=== PATIENT | female | born 1950 | race Caucasian/White ===

== ENCOUNTER 2021-01-14 08:23 | Emergency (ER) | payer MEDICARE, OTHER ==
[~2021-01-14] VITALS: Ht 162.6 cm; Wt 100.0 kg
[~2021-01-14 08:23] MED LIST: AZIT250T PO
[2021-01-14] MEDS ORDERED: normal saline 1000ML IV soln IVB ONE (08:35)
[2021-01-14] MEDS ORDERED: ondansetron/PF 4mg/2ml inj IV ONE (08:35)
[2021-01-14] MEDS ORDERED: ketorolac trometh. 30mg/ml inj. IV ONE (08:35)
[2021-01-14] MEDS: morphine 4 MG/ML inj SYRINge IV PRN ×2 (09:07→09:54)
[2021-01-14 09:34] LABS: BASOPHILS % (AUTO) 0.5 % (0-1); EOSINOPHILS # (AUTO) 0.2 X10'3 (0-0.9); EOSINOPHILS % (AUTO) 2.9 % (0-6); HEMATOCRIT 43.3 % (35.0-45.0); HEMOGLOBIN 14.4 g/dl (12.0-16.0); LYMPHOCYTES # (AUTO) 2.1 X10'3 (1.1-4.8); LYMPHOCYTES % (AUTO) 24.6 % (21-51); MEAN CORPUSCULAR HEMOGLOBIN 28.1 PG (27.0-31.0); MEAN CORPUSCULAR HGB CONC 33.1 g/dL (33.0-36.5); MEAN PLATELET VOLUME 8.8 FL (7.4-10.4); MONOCYTES # (AUTO) 0.7 X10'3 (0-0.9); MONOCYTES % (AUTO) 8.1 % (2-12); NEUTROPHILS # (AUTO) 5.4 X10'3 (1.8-7.7); NEUTROPHILS % (AUTO) 63.9 % (42-75); PLATELET COUNT 364 X10'3 (140-440); RED CELL DISTRIBUTION WIDTH 14.1 % (11.5-14.5); WHITE BLOOD COUNT 8.4 X10'3 (4.5-11.0)
[2021-01-14 09:40] LABS: ALANINE AMINOTRANSFERASE 24 U/L (12-78); ALBUMIN 3.5 G/DL (3.4-5.0); ALBUMIN/GLOBULIN RATIO 0.8 (1.1-1.5); ALKALINE PHOSPHATASE 104 IU/L (46-116); ANION GAP 11 (8-16); ASPARTATE AMINO TRANSFERASE 17 U/L (10-37); BILIRUBIN,TOTAL 0.3 MG/DL (0.1-1.0); BLOOD UREA NITROGEN 14 MG/DL (7-18); BUN/CREATININE RATIO 19.7 (6.6-38.0); CALCIUM 8.9 MG/DL (8.5-10.1); CHLORIDE 105 MMOL/L (99-107); CREATININE 0.71 MG/DL (0.40-0.90); GLUCOSE 112 MG/DL (70-104); POTASSIUM 3.8 MMOL/L (3.5-5.1); SODIUM 142 MMOL/L (135-145); TOTAL CARBON DIOXIDE 26.2 MMOL/L (24-32); TOTAL PROTEIN 7.9 G/DL (6.4-8.2); eGFR 81 ML/MIN
[2021-01-14 10:21] LABS: CLARITY,URINE CLOUDY (Clear); COLOR,URINE YELLOW (Yellow); GLUCOSE, URINE NEGATIVE (Neg); KETONES,URINE NEGATIVE (Neg); LEUKOCYTE ESTERASE ,URINE NEGATIVE (Neg); NITRITES, URINE NEGATIVE (Neg); OCCULT BLOOD,URINE LARGE (Neg); PH,URINE 6.5 (4.8-8.0); PROTEIN,URINE 30 mg/dl (Neg); UROBILINOGEN,URINE 0.2 E.U/dL (0.2-1.0)
[2021-01-14] MEDS ORDERED: ONDA4TAB6 PO (10:21)
[2021-01-14] MEDS ORDERED: FLO0.4C PO (10:21)
[2021-01-14] MEDS ORDERED: HYDR-3965 PO (10:21)
[2021-01-14] MEDS ORDERED: NAPR-56 PO (10:21)
[2021-01-14 10:32] LABS: UA COLLECTION TYPE CLN CATCH MIDSTREAM
[2021-01-14 10:42] LABS: MUCUS STRANDS NONE SEEN /LPF (Neg); SQUAMOUS EPITHELIAL CELL,UR MANY /LPF (FEW)
[2021-01-14 10:43] LABS: RBC,URINE TNTC /HPF (0-2)
[2021-01-14 10:47] LABS: BACTERIA,URINE FEW /HPF (Neg); STARCH,URINE FEW /HPF (NEGATIVE)
[2021-01-14 10:48] LABS: WBC,URINE 0-4 /HPF (0-4)
[2021-01-14 11:01] VITALS: BP 136/55
== END 2021-01-14 11:03 | disposition home or self-care (01) ==
LOC: ER 08:24
DX: N20.0 Calculus of kidney (principal); R10.30 Lower abdominal pain, unspecified; Z87.442 Personal history of urinary calculi; Z90.710 Acquired absence of both cervix and uterus; Z79.2 Long term (current) use of antibiotics; Z79.899 Other long term (current) drug therapy
CPT/HCPCS: 36415; 74176; 80053; 81001; 85025; 93005; 96361; 96374; 96375; 96376; 99285; J1885; J2270; J2405; J7030

== ENCOUNTER 2021-02-10 06:55 | Observation (INO) | payer MEDICARE, OTHER ==
[2021-02-10] VITALS (9 sets, daily range): BP systolic 104–137; BP diastolic 40–63
[~2021-02-10] VITALS: Ht 162.6 cm; Wt 95.7 kg
[~2021-02-10 06:55] MED LIST changes: +FLO0.4C PO; +HYDR-3965 PO; +NAPR-56 PO; +ONDA4TAB6 PO
[2021-02-10] MEDS ORDERED: nitroGLYCERIN 0.4mg/hour patch TD ONE (07:20)
[2021-02-10] MEDS ORDERED: aspirin 81mg tab.chew PO ONE (07:20)
[2021-02-10 08:17] LABS: BASOPHILS % (AUTO) 0.5 % (0-1); EOSINOPHILS # (AUTO) 0.2 X10'3 (0-0.9); EOSINOPHILS % (AUTO) 3.3 % (0-6); LYMPHOCYTES # (AUTO) 1.8 X10'3 (1.1-4.8); MEAN CORPUSCULAR HEMOGLOBIN 28.2 PG (27.0-31.0); MEAN CORPUSCULAR HGB CONC 32.5 g/dL (33.0-36.5); MEAN CORPUSCULAR VOLUME 86.7 FL (78-98); MEAN PLATELET VOLUME 8.9 FL (7.4-10.4); MONOCYTES # (AUTO) 0.7 X10'3 (0-0.9); MONOCYTES % (AUTO) 10.4 % (2-12); NEUTROPHILS # (AUTO) 4.3 X10'3 (1.8-7.7); NEUTROPHILS % (AUTO) 60.8 % (42-75); PLATELET COUNT 318 X10'3 (140-440); RED BLOOD COUNT 4.96 X10'6 (4.20-5.60); WHITE BLOOD COUNT 7.1 X10'3 (4.5-11.0)
[2021-02-10 08:21] LABS: ALANINE AMINOTRANSFERASE 21 U/L (12-78); ALBUMIN 3.5 G/DL (3.4-5.0); ALBUMIN/GLOBULIN RATIO 0.8 (1.1-1.5); ALKALINE PHOSPHATASE 97 IU/L (46-116); ANION GAP 7 (8-16); ASPARTATE AMINO TRANSFERASE 13 U/L (10-37); BILIRUBIN,TOTAL 0.4 MG/DL (0.1-1.0); BLOOD UREA NITROGEN 12 MG/DL (7-18); BUN/CREATININE RATIO 18.8 (6.6-38.0); CHLORIDE 106 MMOL/L (99-107); CREATININE 0.64 MG/DL (0.40-0.90); GLUCOSE 105 MG/DL (70-104); SODIUM 141 MMOL/L (135-145); TOTAL CARBON DIOXIDE 28.1 MMOL/L (24-32); TOTAL PROTEIN 7.8 G/DL (6.4-8.2); eGFR > 90 ML/MIN
[2021-02-10] MEDS ORDERED: metoprolol tartrate 1mg/ml inj IV PRN (09:00)
[2021-02-10] MEDS ORDERED: nitroGLYCERIN 0.4mg SUBLingual tab SL PRN ×2 (09:00)
[2021-02-10] MEDS ORDERED: HYDROcodone/acetaminophen 5mg/325mg tablet PO PRN (09:00)
[2021-02-10] MEDS ORDERED: magnesium Cl slow-release 64mg tablet PO PRN (09:00)
[2021-02-10] MEDS ORDERED: HYDROcodone/acetaminophen 10/325mg tab PO PRN (09:00)
[2021-02-10] MEDS ORDERED: morphine 2 MG/ML inj. syringe IV PRN ×2 (09:00)
[2021-02-10] MEDS ORDERED: mag hydrox/Alum hydrox/simeth 30ml oral suspension PO PRN (09:00)
[2021-02-10] MEDS ORDERED: acetaminophen 325mg tablet PO PRN ×2 (09:00)
[2021-02-10] MEDS ORDERED: ondansetron/PF 4mg/2ml inj IV PRN (09:00)
[2021-02-10] MEDS ORDERED: aminophylline 250mg/10ml inj. IV PRN (09:00)
[2021-02-10] MEDS ORDERED: normal saline 1000ml 1,000 ML IV SCH (09:00)
[2021-02-10] MEDS ORDERED: regadenoson 0.4mg/5ml syringe IV PRN (09:00)
[2021-02-10] MEDS ORDERED: magnesium 4gm in 100ml NS 100 ML IV PRN (09:00)
[2021-02-10] MEDS ORDERED: potassium Cl 40MEQ/1/2NS 520ml 520 ML IV PRN ×2 (09:00)
[2021-02-10] MEDS ORDERED: magnesium 2GM in 50ml NS 50 ML IV PRN (09:00)
[2021-02-10] MEDS ORDERED: potassium Cl 20 mEq SR tablet PO PRN ×2 (09:00)
[2021-02-10] MEDS ORDERED: magnesium hydroxide 30ml (MOM) UD suspension PO PRN (09:00)
[2021-02-10 09:36] LABS: CHOL/HDL RATIO 2.6 (0.00-4.99); CHOLESTEROL 133 MG/DL (0-200); HDL CHOLESTEROL 52 MG/DL (35-60); LDL CHOLESTEROL 71 MG/DL (50-100); TRIGLYCERIDES 107 MG/DL (20-135)
[2021-02-10] MEDS ORDERED: CHOL20004 PO (09:52)
[2021-02-10] MEDS ORDERED: OMEG1CAP13 PO (09:52)
[2021-02-10] MEDS ORDERED: [UNRECOGNIZED DRUG - CODE] PO (09:52)
[2021-02-10] MEDS ORDERED: K and/or MAG REPLACEMENT MC SCH (20:00)
[2021-02-10] MEDS ORDERED: temazepam 15mg capsule PO PRN (21:00)
[2021-02-11] MEDS ORDERED: enoxaparin 40mg/0.4ml syringe SUBCUT SCH (08:00)
[2021-02-11] MEDS ORDERED: aspirin 81mg tablet.DR PO SCH (08:00)
--- NOTE | 2021-02-11 10:21 | NUR ---
CASE MANAGEMENT DISCHARGE FOLLOW UP: Spoke with pt via telephone. Reports that she is doing great; denies CP, SOB/dyspnea, dizziness, diaphoresis, N/V. Verbalizes understanding of s/sx requiring further evaluation/emergent assistance. Verbalizes understanding of medications. Verbalizes understanding and compliance with MD discharge instructions. Verbalizes understanding of the importance in making/keeping follow-up appointments, states that she has not yet set up an appointment with her PCP but that she will do so, denies need for assistance. States that staff were very attentive to her needs. States no further questions/concerns at this time.
== END 2021-02-10 14:29 | disposition home or self-care (01) ==
LOC: ER 06:55 → ED HOLD 08:59 → PCU 3S 11:58
PROVIDERS: ADMIT Family Medicine; ATTEND Family Medicine
DX: R07.89 Other chest pain (principal); I20.0 Unstable angina; K21.9 Gastro-esophageal reflux disease without esophagitis; I11.9 Hypertensive heart disease without heart failure; Z87.442 Personal history of urinary calculi; Z90.710 Acquired absence of both cervix and uterus
CPT/HCPCS: 36415; 71045; 78452; 80053; 80061; 83880; 84443; 84484; 85025; 87081; 93017; 96360; 96361; 99284; A9500; G0378; J2785; J7030

== ENCOUNTER 2021-10-30 06:50 | Emergency (ER) | payer MEDICARE, OTHER ==
[~2021-10-30] VITALS: Ht 162.6 cm; Wt 96.0 kg
[~2021-10-30 06:50] MED LIST changes: -AZIT250T PO; +CHOL20004 PO; -FLO0.4C PO; -HYDR-3965 PO; -NAPR-56 PO; +OMEG1CAP13 PO; -ONDA4TAB6 PO; +[UNRECOGNIZED DRUG - CODE] PO
[2021-10-30 07:10] VITALS: BP 135/82
[2021-10-30] MEDS ORDERED: BENZ-38 PO (07:15)
[2021-10-30] MEDS ORDERED: AZIT-83 PO (07:15)
== END 2021-10-30 08:24 | disposition home or self-care (01) ==
LOC: ER 06:51
DX: J06.9 Acute upper respiratory infection, unspecified (principal); R09.81 Nasal congestion; R53.83 Other fatigue; R05.9 Cough, unspecified; Z87.442 Personal history of urinary calculi; Z90.710 Acquired absence of both cervix and uterus; Z79.2 Long term (current) use of antibiotics; Z79.899 Other long term (current) drug therapy
CPT/HCPCS: 71045; 99283

== ENCOUNTER 2022-01-07 08:49 | Emergency (ER) | payer MEDICARE, OTHER ==
[~2022-01-07] VITALS: Ht 162.6 cm; Wt 93.0 kg
[2022-01-07 08:55] VITALS: BP 135/73
--- NOTE | 2022-01-07 10:55 | NUR ---
Pt given and understands d/c instructions. Ambulatory with a steady gait.
== END 2022-01-07 10:55 | disposition home or self-care (01) ==
LOC: ER 08:50
DX: J20.9 Acute bronchitis, unspecified (principal); Z20.822 Contact with and (suspected) exposure to COVID-19; R05.9 Cough, unspecified; Z87.442 Personal history of urinary calculi; Z90.710 Acquired absence of both cervix and uterus; Z79.899 Other long term (current) drug therapy
CPT/HCPCS: 71045; 87635; 99284; C9803

== ENCOUNTER 2023-04-18 05:06 | Observation (INO) | payer MEDICARE, OTHER ==
[~2023-04-18] VITALS: Ht 175.3 cm; Wt 93.1 kg
[~2023-04-18 05:06] MED LIST changes: +OMEG-5 PO; -OMEG1CAP13 PO
[2023-04-18 05:45] LABS: ALANINE AMINOTRANSFERASE 21 U/L (12-78); ALBUMIN 3.3 G/DL (3.4-5.0); ALBUMIN/GLOBULIN RATIO 0.9 (1.1-1.5); ALKALINE PHOSPHATASE 84 IU/L (46-116); ANION GAP 7 (8-16); ASPARTATE AMINO TRANSFERASE 18 U/L (10-37); BASOPHILS # (AUTO) 0.1 X10'3 (0-0.2); BASOPHILS % (AUTO) 0.8 % (0-1); BILIRUBIN,TOTAL 0.4 MG/DL (0.1-1.0); BLOOD UREA NITROGEN 16 MG/DL (7-18); BUN/CREATININE RATIO 21.1 (10.0-20.0); CALCIUM 8.1 MG/DL (8.5-10.1); CHLORIDE 106 MMOL/L (99-107); CREATININE 0.76 MG/DL (0.40-0.90); EOSINOPHILS # (AUTO) 0.2 X10'3 (0-0.9); EOSINOPHILS % (AUTO) 2.9 % (0-6); GLUCOSE 108 MG/DL (70-104); HEMATOCRIT 43.1 % (35.0-45.0); HEMOGLOBIN 14.2 g/dl (12.0-16.0); LYMPHOCYTES # (AUTO) 2.9 X10'3 (1.1-4.8); LYMPHOCYTES % (AUTO) 35.1 % (21-51); MEAN CORPUSCULAR HEMOGLOBIN 28.5 PG (27.0-31.0); MEAN CORPUSCULAR VOLUME 86.3 FL (78-98); MEAN PLATELET VOLUME 8.5 FL (7.4-10.4); MONOCYTES # (AUTO) 0.8 X10'3 (0-0.9); MONOCYTES % (AUTO) 10.1 % (2-12); NEUTROPHILS # (AUTO) 4.2 X10'3 (1.8-7.7); NEUTROPHILS % (AUTO) 51.1 % (42-75); PLATELET COUNT 336 X10'3 (140-440); POTASSIUM 3.7 MMOL/L (3.5-5.1); RED CELL DISTRIBUTION WIDTH 14.1 % (11.5-14.5); SODIUM 140 MMOL/L (135-145); TOTAL CARBON DIOXIDE 26.6 MMOL/L (24-32); TOTAL PROTEIN 6.8 G/DL (6.4-8.2); WHITE BLOOD COUNT 8.2 X10'3 (4.5-11.0); eGFR 74 ML/MIN
--- NOTE | 2023-04-18 06:38 | NUR ---
PT ALSO REPORTS KIDNEY PAIN RIGHT SIDE, HX OF KIDNEY STONES.
[2023-04-18 08:42] LABS: CLARITY,URINE CLEAR (Clear); COLOR,URINE YELLOW (Yellow); GLUCOSE, URINE NEGATIVE (Neg); KETONES,URINE TRACE mg/dl (Neg); LEUKOCYTE ESTERASE ,URINE NEGATIVE (Neg); NITRITES, URINE NEGATIVE (Neg); OCCULT BLOOD,URINE MODERATE (Neg); PROTEIN,URINE TRACE mg/dl (Neg); UROBILINOGEN,URINE 0.2 E.U/dL (0.2-1.0)
[2023-04-18 08:48] LABS: UA COLLECTION TYPE CLN CATCH MIDSTREAM
[2023-04-18 08:49] LABS: RBC,URINE 20-50 /HPF (0-2)
[2023-04-18 08:50] LABS: BACTERIA,URINE FEW /HPF (Neg); MUCUS STRANDS NONE SEEN /LPF (Neg); SQUAMOUS EPITHELIAL CELL,UR FEW /LPF (FEW); WBC,URINE 0-4 /HPF (0-4)
--- NOTE | 2023-04-18 10:30 | NUR ---
UPDATED FAMILY ON PLAN FOR PENDING HOSPITALIST FOR POSSIBLE ADMISSION, REQUESTING NON NARCOTIC PAIN MEDICATION PRIOR TO DISCHARGE
[2023-04-18] MEDS ORDERED: aspirin 325mg tablet PO ONE (11:00)
[2023-04-18] MEDS ORDERED: nitroGLYCERIN 1gm ointment UD TP ONE (11:00)
[2023-04-18] MEDS ORDERED: magnesium 2GM in 50ml NS 50 ML IV PRN (11:55)
[2023-04-18] MEDS ORDERED: PERFLUTREN PROTEIN-A MICROSPHR (Optison) 0.22 MG/ML 3ML VIAL IV ONE (11:55)
[2023-04-18] MEDS ORDERED: morphine 2 MG/ML inj. syringe IV PRN ×2 (11:55)
[2023-04-18] MEDS ORDERED: potassium Cl 40MEQ/1/2NS 520ml 520 ML IV PRN (11:55)
[2023-04-18] MEDS ORDERED: magnesium Cl slow-release 64mg tablet PO PRN (11:55)
[2023-04-18] MEDS ORDERED: magnesium hydroxide 30ml (MOM) UD suspension PO PRN (11:55)
[2023-04-18] MEDS ORDERED: ondansetron/PF 4mg/2ml inj IV PRN (11:55)
[2023-04-18] MEDS ORDERED: acetaminophen 325mg tablet PO PRN (11:55)
[2023-04-18] MEDS ORDERED: mag hydrox/Alum hydrox/simeth 30ml oral suspension PO PRN (11:55)
[2023-04-18] MEDS ORDERED: potassium Cl 20 mEq SR tablet PO PRN ×2 (11:55)
[2023-04-18] MEDS ORDERED: magnesium 4gm in 100ml NS 100 ML IV PRN (11:55)
--- NOTE | 2023-04-18 12:50 | NUR ---
ATTEMPTED REPORT, NO ANSWER
[2023-04-18] MEDS ORDERED: NO HOME MEDS (13:25)
--- NOTE | 2023-04-18 13:41 | NUR ---
Patient refused PIV prior to transport to floor
--- NOTE | 2023-04-18 13:45 | NUR ---
RECEIVED REPORT AND ASSUMED CARE OF PATIENT. VSS A/OX4 NO CHEST PAIN STATED. WILL LOOK AT POC AND H&P AND DISCUSS POC WITH PATIENT
[2023-04-18 15:00] VITALS: BP 140/70
--- NOTE | 2023-04-18 15:25 | NUR ---
PAGER ID: [phone] MESSAGE: ROOM [id number] TRAMAINE - NO DIET ORDERED, CAN SHE EAT? ARE YOU DOING A FOLLOW UP ULTRASOUND FOR GALL STONES? PLEASE ADVISE - INDIRA CLAROS [phone]
[2023-04-18] MEDS: normal saline 1000ml 1,000 ML IV SCH ×2 (16:30→19:50)
[2023-04-18 18:00] VITALS: BP 138/57
--- NOTE | 2023-04-18 18:33 | NUR ---
Patient in room PCU 3028. I have received report from Teresa CLAROS, and had the opportunity to ask questions and assume patient care.
[2023-04-18] MEDS: K and/or MAG REPLACEMENT MC SCH (20:00)
[2023-04-18] MEDS: docusate sod 100mg capsule PO SCH (20:00)
[2023-04-18 22:00] VITALS: BP 132/90
[2023-04-18] MEDS: traMADol 50MG tablet PO PRN (22:14)
[2023-04-19] MEDS: normal saline 1000ml 1,000 ML IV SCH (02:00)
[2023-04-19 02:29] VITALS: BP 136/78
[2023-04-19 06:30] VITALS: BP 134/54
--- NOTE | 2023-04-19 06:30 | NUR ---
Problems reprioritized. Patient report given, questions answered & plan of care reviewed with Teresa RN. Pt stable at shift change.
[2023-04-19 06:49] LABS: ALBUMIN 2.8 G/DL (3.4-5.0); ANION GAP 5 (8-16); BLOOD UREA NITROGEN 10 MG/DL (7-18); BUN/CREATININE RATIO 15.6 (10.0-20.0); CALCIUM 8.3 MG/DL (8.5-10.1); CHLORIDE 107 MMOL/L (99-107); CREATININE 0.64 MG/DL (0.40-0.90); GLUCOSE 94 MG/DL (70-104); SODIUM 139 MMOL/L (135-145); TOTAL CARBON DIOXIDE 27.1 MMOL/L (24-32); eGFR > 90 ML/MIN
[2023-04-19 06:51] LABS: BASOPHILS % (AUTO) 0.5 % (0-1); EOSINOPHILS # (AUTO) 0.3 X10'3 (0-0.9); EOSINOPHILS % (AUTO) 3.9 % (0-6); HEMATOCRIT 40.8 % (35.0-45.0); HEMOGLOBIN 13.5 g/dl (12.0-16.0); LYMPHOCYTES # (AUTO) 2.1 X10'3 (1.1-4.8); LYMPHOCYTES % (AUTO) 32.4 % (21-51); MEAN CORPUSCULAR HEMOGLOBIN 28.8 PG (27.0-31.0); MEAN CORPUSCULAR VOLUME 87.4 FL (78-98); MEAN PLATELET VOLUME 8.3 FL (7.4-10.4); MONOCYTES # (AUTO) 0.6 X10'3 (0-0.9); MONOCYTES % (AUTO) 8.6 % (2-12); NEUTROPHILS # (AUTO) 3.5 X10'3 (1.8-7.7); NEUTROPHILS % (AUTO) 54.6 % (42-75); PLATELET COUNT 299 X10'3 (140-440); RED BLOOD COUNT 4.67 X10'6 (4.20-5.60); RED CELL DISTRIBUTION WIDTH 13.9 % (11.5-14.5); WHITE BLOOD COUNT 6.5 X10'3 (4.5-11.0)
[2023-04-19] MEDS ORDERED: pantoprazole 40mg Tablet.DR PO SCH (07:30)
[2023-04-19] MEDS: traMADol 50MG tablet PO PRN (07:47)
[2023-04-19] MEDS: K and/or MAG REPLACEMENT MC SCH (08:00)
[2023-04-19] MEDS: docusate sod 100mg capsule PO SCH (08:00)
[2023-04-19] MEDS ORDERED: enoxaparin 40mg/0.4ml syringe SUBCUT SCH (08:00)
--- NOTE | 2023-04-19 09:03 | NUR ---
SPOKE WITH [facility] WHO STATED THAT THE PATIENT STATED HER ULTRASOUND OF GALLBLADDER HAS BEEN CANCELLED BY MD. A DIET WAS ORDERED BY MD HOWEVER, ULTRASOUND WAS NOT CANCELLED. WILL ASK MD TO CONFIRM ULTRASOUND STATUS
[2023-04-19] MEDS ORDERED: TRAM50TA2 PO (09:31)
[2023-04-19] MEDS ORDERED: LANS30CA56 PO (09:31)
[2023-04-19 11:30] VITALS: BP 130/46
--- NOTE | 2023-04-19 15:05 | NUR ---
pt dc'd home. all dc instructions explained to pt and pts with both verbalizing understanding regarding poc. pt is to follow up with her urologist at [place]. new medications prescribed for gastritis/gerd per dr cabrera. if pt has recurring chest pain symptoms she is to return to the ED. it was decided that patient did not need a gall bladder us at this time. she will follow up with her pmd for all other concerns. pt left via vss a/ox4 all belongings including cell phone and truck driver supervisor left with patient
[2023-04-20] MEDS ORDERED: TRAM50TA2 PO (13:58)
== END 2023-04-19 15:13 | disposition home or self-care (01) ==
LOC: ER 05:06 → ED HOLD 11:54 → PCU 3S 13:48
PROVIDERS: ADMIT Family Medicine; ATTEND Family Medicine
DX: R07.89 Other chest pain (principal); R10.13 Epigastric pain; G89.29 Other chronic pain; M54.9 Dorsalgia, unspecified; N13.2 Hydronephrosis with renal and ureteral calculous obstruction; K57.30 Diverticulosis of large intestine without perforation or abscess without bleeding; Z87.442 Personal history of urinary calculi; Z90.710 Acquired absence of both cervix and uterus; Z79.899 Other long term (current) drug therapy
CPT/HCPCS: 36415; 71045; 74176; 80048; 80053; 81001; 83735; 83880; 84484; 85025; 87081; 93308; 96360; 96361; 96372; 99285; G0378; J1650; J7030

== ENCOUNTER 2025-05-13 13:53 | Emergency (ER) | payer MEDICARE, OTHER ==
[~2025-05-13] VITALS: Ht 162.6 cm; Wt 93.6 kg
[~2025-05-13 13:53] MED LIST changes: -CHOL20004 PO; +LANS30CA56 PO; -OMEG-5 PO; -[UNRECOGNIZED DRUG - CODE] PO
[2025-05-13 13:55] VITALS: TEMP 97.3
[2025-05-13] MEDS ORDERED: ketorolac trometh 15mg/ml vial 15 MG/ML ML IM ONE (14:15)
[2025-05-13] MEDS ORDERED: ondansetron 4mg rapidly disintigrating tab PO ONE (14:15)
--- NOTE | 2025-05-13 14:15 | Physician Documentation ---
History of Present Illness Chief Complaint: Flank Pain Stated Complaint: KIDNEY STONES Time Seen by MD: 14:02 Primary Medical Doctor: Bean (but no [facility] care) HPI This 74-year-old female with past history of kidney stones presents with approximately 1 hour of non-radiating right-sided flank pain with associated nausea though without vomiting or diarrhea. Patient reports no fever, dysuria, or hematuria. Patient reports no other acute symptoms or concerns. She reports that she has required lithotripsy 3 times prior. Medication Reconciliation Allergies: Coded Allergies: No Known Allergies (Unverified , 11/12/15) Scheduled Lansoprazole (Lansoprazole), 1 CAP PO DAILY Scheduled PRN Hydrocodone Bit/Acetaminophen 5/325 MG ([place] 5/325 MG), 1 TAB PO Q6H PRN for pain Past Medical History Past Medical History: Kidney Stones, Chronic Back Pain Past Surgical History: hysterectomy Other Past Surgical History: foot surgery for neuroma Patient History: FH: breast cancer FAMILY/OTHER (Aunt on mothers side), FH: prostate cancer FATHER Other Past Family History: No family history of CAD Alcohol Use: None Drug Use: none Lives with: Family Lives In: Home Occupation: retired Review of Systems ROS Right sided flank pain as stated above in the HPI, otherwise all systems are reviewed and negative. Physical Exam Vital Signs: Temperature: 97.3, Source: Temporal, Heart Rate: 71, Respiratory Rate: 16, BP: 213/83, Pulse Oximetry: 96, Weight: 93.600 Physical Exam VITALS: Reviewed and as above. GENERAL: Alert, nontoxic appearing, no apparent distress. RESPIRATORY: No increased work of breathing, no respiratory distress, speaking in full clear sentences, clear lung sounds in all haile CV: Regular rate and rhythm no murmur BACK: No tenderness to palpation, no CVA tenderness Progress Results/Orders Results/Orders Vital Signs 05/13/25 13:55 Temp 97.3 Pulse 71 Resp 16 B/P (MAP) 213/83 Pulse Ox 96 EKG/XRAY/CT/US/VASC/MRI CT : Impression EXAM: CT CT ABDOMEN PELVIS HISTORY: Right Flank Pain COMPARISON: None TECHNIQUE: Helical CT images of the abdomen and pelvis were performed without contrast. Sagittal and coronal reformatted images were obtained. This CT exam was performed using one or more of the following dose reduction techniques: Automated exposure control, adjustment of the mA and/or kV according to patient size, or use of iterative reconstruction technique. Radiation Dose: CT Abdomen/Pelvis: CTDIvol 18.13 mGy, DLP 860.78 mGy*cm. FINDINGS: Urinary tract: There is mild right hydronephrosis and hydroureter secondary to a 3 mm right distal ureteral calculus (image 62, series 2). There are nonobstructing bilateral renal subcentimeter calculi. No left ureteral calculi, hydronephrosis, or hydroureter. No urinary bladder calculi. Miscellaneous: The heart is upper limits of normal in size. The lung bases are clear. Small gallstones accumulate in the dependent portion of the gallbladder. The noncontrast liver, spleen, pancreas, and adrenal glands are unremarkable. There is a left upper quadrant splenule. No abdominal aortic aneurysm. No abnormal bowel dilatation, free air, free fluid, or suspicious adenopathy. The appendix is not dilated and does not appear inflamed. The uterus is surgically absent. There is large volume subcutaneous adipose tissue throughout. There is mild osteoarthritis of the hips. There is advanced lumbar degenerative disc disease and facet arthropathy. IMPRESSION: 1. Mild right hydronephrosis and hydroureter secondary to a distal ureteral 3 mm calculus. 2. Bilateral nonobstructing nephrolithiasis. 3. Cholelithiasis. 4. Postoperative changes of hysterectomy. 5. Advanced lumbar degenerative disc disease and facet arthropathy. Electronically Signed by:CALI RODRIGUEZ MD Date & Time: 05/13/251511 Dictated by: CALI RODRIGUEZ MD Dictation date and time: 05/13/251511 I have reviewed and agree with the radiology report. I have reviewed and interpreted the imaging as: Likely stone to distal ureter. No intraperitoneal free air Medical Decision Making Findings This 74-year-old female with a history of nephrolithiasis presented with acute onset right-sided flank pain, patient responded well to Toradol with report of significant reduction in pain, CT demonstrated 3 mm nonobstructing stone to distal right ureter. Patient's physical exam was benign, vital signs stable, lab work did not demonstrate evidence of systemic infection, urinary tract infection, or electrolyte or metabolic derangement. Increased WBCs on urinalysis attributed to hematuria related to passage of urolithiasis. Stone is 3 mm and will likely pass on its own, reassuring patient is able to follow up with her urologist. Hypertension on triage attributed to pain, with blood pressure decreasing after patient was medicated for pain. Pain is currently well controlled with nonnarcotic pain medications though patient discharged with short prescription for [place] for breakthrough flank pain. Patient is otherwise well-appearing and appropriate for outpatient follow up. I have discussed with the patient the risks of addiction and overdose associated with use of opioids, including the increased risk of addiction to an opioid for an individual who is suffering from both mental and substance abuse disorders. I have discussed with the patient the danger of taking an opioid with a benzodiazepine, alcohol, or another central nervous system depressant. [facility] database report ran prior to control prescribing. Differential Dx:Considerations: Include: AAA, Angina/CA, Aortic dissection, Appendicitis, Cholangitis, Cholelithasis, Constipation, Diverticular disease, Gastritis/PUD, Gastroenteritis, GI hemorrhage, Inflammatory BD, Pancreatitis, Urinary obstruction, Urinary tract infection, Urolithiasis Departure Disposition: HOME / SELF CARE / HOMELESS Impression: Primary Impression: Urolithiasis Qualified Codes: N20.2 - Calculus of kidney with calculus of ureter Condition: Improved Discharge Instructions: Kidney Stones Additional Instructions: Please take the medications as prescribed, please follow up with the urologist at the number contact information this discharge paperwork. You may use ibuprofen and or Tylenol as needed for pain as directed by [id number]-tym-[id number] packaging. Please follow up with your primary care provider in the next few days. Please return to the emergency department for any new or worsening concerning symptoms. Do not take ibuprofen for the next 12 hours as you received a dose of Toradol in the emergency department which replaces this medication. You may use iqcq-fni-[id number] ibuprofen and or Tylenol as needed for pain as directed by the savi-ehd-duqoquz packaging. For breakthrough pain you may use the prescribed [place], be aware that the [place] also contains the same active ingredient as Tylenol, so do not take more than the recommended amount of Tylenol as directed on the qrwn-rhe-dfynxbh packaging. You have been prescribed an opioid medication, there are risks of addiction and overdose associated with the use of opioids. The risk of addiction to an opioid for increases for those suffering both from mental health and substance use disorders. The use of an opioid while taking other central nervous system depressants including but not limited to benzodiazepines or alcohol, or other opioids increases the risk of serious side effects that can include overdose or respiratory depression that can lead to serious injury or . Referrals: NO PRIMARY CARE PROVIDER (PCP) RAY RODRÍGUEZ MD Prescriptions Hydrocodone Bit/Acetaminophen 5/325 MG ([place] 5/325 MG) 5 Mg/325 Mg Tablet 1 TAB PO Q6H PRN for pain for 3 Days, #12 TAB Prov: MELISSA LOJA 05/13/25 Education Educated: Patient Educated regarding: diagnosis, treatment, prognosis, need for follow up Signature Scribe Signature: No scribe Attestation: The note accurately reflects work and decisions made by me.JOE Sorto 05/14/25 00:03 MELISSA LOJA May 13, 2025 14:15
[2025-05-13 14:21] LABS: BASOPHILS % (AUTO) 0.6 % (0-1); EOSINOPHILS # (AUTO) 0.2 X10'3 (0-0.9); EOSINOPHILS % (AUTO) 2.9 % (0-6); HEMATOCRIT 43.4 % (35.0-45.0); HEMOGLOBIN 14.5 g/dl (12.0-16.0); LYMPHOCYTES # (AUTO) 2.4 X10'3 (1.1-4.8); LYMPHOCYTES % (AUTO) 30.7 % (21-51); MEAN CORPUSCULAR HEMOGLOBIN 28.6 PG (27.0-31.0); MEAN CORPUSCULAR HGB CONC 33.4 g/dL (33.0-36.5); MEAN CORPUSCULAR VOLUME 85.4 FL (78-98); MEAN PLATELET VOLUME 8.6 FL (7.4-10.4); MONOCYTES # (AUTO) 0.6 X10'3 (0-0.9); MONOCYTES % (AUTO) 7.3 % (2-12); NEUTROPHILS # (AUTO) 4.6 X10'3 (1.8-7.7); NEUTROPHILS % (AUTO) 58.5 % (42-75); PLATELET COUNT 300 X10'3 (140-440); RED BLOOD COUNT 5.07 X10'6 (4.20-5.60); WHITE BLOOD COUNT 7.9 X10'3 (4.5-11.0)
[2025-05-13] MEDS: ketorolac trometh 15mg/ml vial 15 MG/ML ML IV ONE (14:37)
[2025-05-13] MEDS: ondansetron/PF 4mg/2ml inj IV ONE (14:37)
[2025-05-13 14:40] LABS: ALANINE AMINOTRANSFERASE 25 U/L (12-78); ALBUMIN 3.7 G/DL (3.4-5.0); ALBUMIN/GLOBULIN RATIO 0.9 (1.1-1.5); ALKALINE PHOSPHATASE 101 IU/L (46-116); ANION GAP 11 (8-16); ASPARTATE AMINO TRANSFERASE 21 U/L (10-37); BILIRUBIN,TOTAL 0.3 MG/DL (0.1-1.0); BLOOD UREA NITROGEN 11 MG/DL (7-18); BUN/CREATININE RATIO 13.4 (10.0-20.0); CALCIUM 8.9 MG/DL (8.5-10.1); CHLORIDE 106 MMOL/L (99-107); CREATININE 0.82 MG/DL (0.40-0.90); GLUCOSE 108 MG/DL (70-104); LIPASE 28 U/L (16-77); SODIUM 142 MMOL/L (135-145); TOTAL CARBON DIOXIDE 25.3 MMOL/L (24-32); TOTAL PROTEIN 7.9 G/DL (6.4-8.2); eCRCL 50 ML/MIN; eGFR 68 ML/MIN
--- NOTE | 2025-05-13 15:14 | RADIOLOGY REPORT ---
EXAM: CT CT ABDOMEN PELVIS HISTORY: Right Flank Pain COMPARISON: None TECHNIQUE: Helical CT images of the abdomen and pelvis were performed without contrast. Sagittal and coronal ref ormatted images were obtained. This CT exam was performed using one or more of the following dose red uction techniques: Automated exposure control, adjustment of the mA and/or kV according to patient si ze, or use of iterative reconstruction technique. Radiation Dose: CT Abdomen/Pelvis: CTDIvol 18.13 mGy, DLP 860.78 mGy*cm. FINDINGS: Urinary tract: There is mild right hydronephrosis and hydroureter secondary to a 3 mm right distal ur eteral calculus (image 62, series 2). There are nonobstructing bilateral renal subcentimeter calculi. No left ureteral calculi, hydronephrosis, or hydroureter. No urinary bladder calculi. Miscellaneous: The heart is upper limits of normal in size. The lung bases are clear. Small gallston es accumulate in the dependent portion of the gallbladder. The noncontrast liver, spleen, pancreas, a nd adrenal glands are unremarkable. There is a left upper quadrant splenule. No abdominal aortic aneu rysm. No abnormal bowel dilatation, free air, free fluid, or suspicious adenopathy. The appendix is not dilated and does not appear inflamed. The uterus is surgically absent. There is large volume sub cutaneous adipose tissue throughout. There is mild osteoarthritis of the hips. There is advanced lumb ar degenerative disc disease and facet arthropathy. IMPRESSION: 1. Mild right hydronephrosis and hydroureter secondary to a distal ureteral 3 mm calculus. 2. Bilateral nonobstructing nephrolithiasis. 3. Cholelithiasis. 4. Postoperative changes of hysterectomy. 5. Advanced lumbar degenerative disc disease and facet arthropathy.
[2025-05-13 16:06] VITALS: BP 172/90; PULSE 60; RESP 18; O2SAT 98
[2025-05-13] MEDS ORDERED: HYDR-3965 PO (16:08)
[2025-05-13 16:09] LABS: BILIRUBIN,URINE NEGATIVE (Neg); CLARITY,URINE SLIGHTLY CLOUDY (Clear); COLOR,URINE YELLOW (Yellow); GLUCOSE, URINE NEGATIVE (Neg); KETONES,URINE NEGATIVE (Neg); LEUKOCYTE ESTERASE ,URINE SMALL (Neg); NITRITES, URINE NEGATIVE (Neg); OCCULT BLOOD,URINE LARGE (Neg); PH,URINE 5.5 (4.8-8.0); PROTEIN,URINE TRACE mg/dl (Neg); UROBILINOGEN,URINE 0.2 E.U/dL (0.2-1.0)
[2025-05-13 16:10] LABS: UA COLLECTION TYPE CLN CATCH MIDSTREAM
[2025-05-13 16:29] LABS: BACTERIA,URINE 2+ /HPF (Neg); SQUAMOUS EPITHELIAL CELL,UR FEW /LPF (FEW); STARCH,URINE MODERATE /HPF (NEGATIVE); URIC ACID CRYSTALS FEW /HPF (NEGATIVE)
== END 2025-05-13 17:16 | disposition home or self-care (01) ==
LOC: ER 13:54
DX: N20.9 Urinary calculus, unspecified (principal); Z86.018 Personal history of other benign neoplasm; Z87.440 Personal history of urinary (tract) infections
CPT/HCPCS: 36415; 74176; 80053; 81001; 83690; 85025; 87088; 96374; 96375; 99285; J1885; J2405

== ENCOUNTER 2025-07-27 06:03 | Emergency (ER) | payer MEDICARE, OTHER ==
[~2025-07-27] VITALS: Ht 162.6 cm; Wt 90.9 kg
[2025-07-27 06:05] VITALS: TEMP 96.3
--- NOTE | 2025-07-27 06:13 | ELECTROCARDIOGRAPH REPORT ---
[facility] Test Date: 2025-07-27 Test Time: 06:09:10 Pat Name: JENNYFER REDD Department: EMERGENCY ROOM Room: Gender: F Dyno Technician: ricardo : 1950 Requested By: NAVJOT RICHEY Order Number: [id number] Reading MD: Measurements Intervals [place] Rate: 80 P: 47 IL: 143 QRS: -44 QRSD: 121 T: 97 QT: 393 QTc: 454 Interpretive Statements Sinus rhythm LVH with IVCD, LAD and secondary repol abnrm Inferior infarct, acute (RCA) Lateral leads are also involved Probable RV involvement, suggest recording right precordial leads Please click the below link to view image of tracing.
--- NOTE | 2025-07-27 06:57 | Physician Documentation ---
History of Present Illness Chief Complaint: Flank Pain Stated Complaint: CHEST PAIN Time Seen by MD: 06:09 Primary Medical Doctor: Bean (but no reg med care) Source: patient, family Mode of Arrival: POV Exam Limitations: no limitations HPI Patient in who woke up with right flank pain. Pain is moderate to severe. It is making her throw up. It does radiate into her right side and right upper abdomen. History of multiple kidney stones and this feels the same. She always has to have lithotripsy. She states she thinks she passed a small one on her own once. Denies any medical problems. States she only takes supplements. Medication Reconciliation Allergies: Coded Allergies: No Known Allergies (Unverified , 07/27/25) Scheduled Lansoprazole (Lansoprazole), 1 CAP PO DAILY Tamsulosin Hcl* (Flomax*), 0.4 MG PO DAILY Scheduled PRN Hydrocodone Bit/Acetaminophen 5/325 MG ([place] 5/325 MG), 1-2 TAB PO Q4-6 hours PRN for pain Past Medical History Past Medical History: Kidney Stones, Chronic Back Pain Past Surgical History: hysterectomy Other Past Surgical History: foot surgery for neuroma Patient History: FH: breast cancer FAMILY/OTHER (Aunt on mothers side), FH: prostate cancer FATHER Other Past Family History: No family history of CAD Alcohol Use: None Drug Use: none Lives with: Family Lives In: Home Occupation: retired Review of Systems All Other Systems at this time: Reviewed and Negative Physical Exam Vital Signs: Temperature: 96.3, Source: Temporal, Heart Rate: 64, Respiratory Rate: 17, BP: 178/79, Pulse Oximetry: 99, Weight: 90.900 Oxygen Flow Rate: 0 General Appearance: alert, other (Obvious discomfort) EENT: PERRL/EOMI Neck: normal inspection, full range of motion Respiratory: lungs clear, normal breath sounds, no respiratory distress Chest: no accessory muscle use Cardiovascular: regular rate, rhythm, no edema Gastrointestinal: normal palpation, non-tender Back: normal inspection, no CVA tenderness Extremities: normal range of motion, non-tender Neurologic: oriented x4 Psychiatric: normal mood/affect Skin: normal color, warm/dry Progress Results/Orders Results/Orders Orders - MIGUEL MENDOZA MD Ct Abdomen Pelvis (07/27/25 06:43) Normal Saline 1000ml (0.9% Sodium Chlori (07/27/25 06:45) Completed Orders - MIGUEL MENDOZA MD Ketorolac Trometh 30mg/Ml Vial (Toradol (07/27/25 06:45) Ondansetron Inj. (Zofran 4mg/2ml Vial) (07/27/25 06:45) Ketorolac Trometh 15mg/Ml Vial (Toradol (07/27/25 06:50) Vital Signs 07/27/25 07/27/25 07/27/25 06:05 06:40 06:40 Temp 96.3 Pulse 71 64 Resp 20 21 17 B/P (MAP) 178/79 (112) Pulse Ox 100 99 O2 Flow Rate 0 Medical Decision Making Additional Comments Patient in with a 3 mm proximal right urethral stone and mild hydro. Urinalysis, CBC and chemistry unremarkable. Pain down to a 3 or 4 after Toradol, IV Tylenol, morphine and bag of fluids. Also gave Flomax. She is feeling much better. Did discuss with Dr. Najera in urology who will see the patient in his clinic. Discussed with the patient she is to call their clinic and make an appointment. Giving script for Flomax and hydrocodone. Giving her a strainer to use when she urinates. She is to return here if new or worsening symptoms prior to follow up. Discharged home in good condition with family. Departure Disposition: 01 HOME / SELF CARE / HOMELESS Impression: Primary Impression: Right nephrolithiasis Additional Impression Text Call Dr. Najera's office at [phone] and let them know that Dr. Mendoza spoke to Dr. Najera about you in the ER today and he said to get you in for follow up. Return here if new or worsening prior to follow up. Return if not passing the stone over the next 1-2 weeks or if you are worsening. Condition: Stable Discharge Instructions: Kidney Stones Referrals: NO PRIMARY CARE PROVIDER (PCP) INLO NAJERA MD Prescriptions Hydrocodone Bit/Acetaminophen 5/325 MG ([place] 5/325 MG) 5 Mg/325 Mg Tablet 1-2 TAB PO Q4-6 hours PRN for pain, #12 TAB Prov: MIGUEL MENDOZA MD 07/27/25 Tamsulosin Hcl* (Flomax*) 0.4 Mg Cap.sr.24h 0.4 MG PO DAILY, #14 CAP Prov: MIGUEL MENDOZA MD 07/27/25 Education Educated: Patient, Family Educated regarding: diagnosis, treatment, prognosis, need for follow up Signature Scribe Signature: No scribe Attestation: No scribe MIGUEL MENDOZA MD Jul 27, 2025 06:57
[2025-07-27] MEDS: ondansetron/PF 4mg/2ml inj IV ONE ×2 (07:02→10:38)
[2025-07-27] MEDS: ketorolac trometh 15mg/ml vial 15 MG/ML ML IV ONE (07:02)
[2025-07-27 07:08] LABS: MEAN PLATELET VOLUME 8.3 FL (7.4-10.4); RED CELL DISTRIBUTION WIDTH 14.4 % (11.5-14.5)
[2025-07-27] MEDS: normal saline 1000ml 1,000 ML IV ONE (07:09)
[2025-07-27] MEDS: ketorolac trometh 30MG/ML vial 30 MG/ML VIAL IV ONE (07:21)
[2025-07-27 07:26] LABS: CREATININE 0.76 MG/DL (0.40-0.90); TOTAL CARBON DIOXIDE 24.7 MMOL/L (24-32); eCRCL 54 ML/MIN; eGFR 74 ML/MIN
--- NOTE | 2025-07-27 08:03 | RADIOLOGY REPORT ---
CT CT ABDOMEN PELVIS INDICATION: right flank pain, hx renal stones EXAM DATE: 07/27/2025 07:23 AM COMPARISON: CT CT ABDOMEN PELVIS on DOS: 05/13/25, CT ABDOMEN PELVIS on DOS: 04/18/23, CT ABDOMEN PELVI S on DOS: 01/14/21 RADIATION DOSE: CTDIvol: 36 mGy, DLP: 1827 mGy*cm PROCEDURE: Helical CT images were obtained of the abdomen and pelvis without IV contrast Sagittal and coronal reconstructions are provided. ORAL CONTRAST: None. ADDITIONAL IMAGES / REFORMATS: None All C T scans at this medical facility are performed using dose modulation techniques as appropriate to a p erformed exam including the following: Automated exposure control was utilized; adjustment of the MA and/or KV according to patient size; and use of iterative reconstruction technique. FINDINGS: LUNG BASE: Normal. LIVER: Mild hepatic steatosis. GALLBLADDER AND BILIARY TREE: Gallstones in the gallbladder. No intra- or extrahepatic biliary ductal dilation. PANCREAS: Normal. SPLEEN: Normal. BOWEL: Possible sigmoid colonic polyp. Normal appendix. ADRENALS: 7 mm left adrenal nodule. KIDNEYS AND URETER: Mild right hydronephrosis from a 3 mm proximal right ureter kidney stone. Additio nal bilateral nonobstructive kidney stones are seen. BLADDER: Normal. REPRODUCTIVE ORGANS: Normal. LYMPH NODES:No lymphadenopathy. PERITONEUM: No ascites or free air. No other fluid collection. VESSELS: Scattered atherosclerotic calcifications are noted. RETROPERITONEUM: Normal. ABDOMINAL WALL: Normal. BONES: Scattered osseous degenerative changes are noted. IMPRESSION: Mild right hydronephrosis from a 3 mm proximal right ureter kidney stone. Additional bilateral nonobs tructive kidney stones are seen.
[2025-07-27] MEDS ORDERED: acetaminophen 1,000mg/100ml IV 100 ML IV SCH (08:20)
[2025-07-27] MEDS: acetaminophen 1,000mg/100ml IV 100 ML IV ONE (08:44)
[2025-07-27 09:38] LABS: LEUKOCYTE ESTERASE ,URINE NEGATIVE (Neg); NITRITES, URINE NEGATIVE (Neg); OCCULT BLOOD,URINE LARGE (Neg)
[2025-07-27 09:42] LABS: UA COLLECTION TYPE CLN CATCH MIDSTREAM
[2025-07-27 09:44] LABS: MUCUS STRANDS NONE SEEN /LPF (Neg); SQUAMOUS EPITHELIAL CELL,UR FEW /LPF (FEW)
[2025-07-27] MEDS: morphine 4 MG/ML inj SYRINge IV ONE (10:35)
[2025-07-27] MEDS ORDERED: TAMS-55 PO (12:02)
[2025-07-27] MEDS ORDERED: HYDR-3965 PO (12:02)
[2025-07-27 12:22] VITALS: BP 122/47; PULSE 61; RESP 18; O2SAT 97
== END 2025-07-27 12:24 | disposition home or self-care (01) ==
LOC: ER 06:04
DX: N20.0 Calculus of kidney (principal); Z86.018 Personal history of other benign neoplasm; Z87.442 Personal history of urinary calculi; Z90.710 Acquired absence of both cervix and uterus
CPT/HCPCS: 36415; 74176; 80053; 81001; 83690; 84484; 85025; 93005; 96361; 96374; 96375; 99285; J0131; J1885; J2270; J2405; J7030

== ENCOUNTER 2025-08-05 17:46 | Emergency (ER) | payer MEDICARE ==
[~2025-08-05] VITALS: Ht 162.6 cm; Wt 88.6 kg
[~2025-08-05 17:46] MED LIST changes: +HYDR-3965 PO; +TAMS-55 PO
[2025-08-05 18:43] LABS: MEAN PLATELET VOLUME 8.3 FL (7.4-10.4); RED CELL DISTRIBUTION WIDTH 13.3 % (11.5-14.5)
[2025-08-05 18:57] LABS: CREATININE 1.11 MG/DL (0.40-0.90); TOTAL CARBON DIOXIDE 27.0 MMOL/L (24-32); eCRCL 37 ML/MIN; eGFR 48 ML/MIN
[2025-08-05] MEDS: morphine 4 MG/ML inj SYRINge IV STA (22:38)
[2025-08-05] MEDS: ketorolac trometh 30MG/ML vial 30 MG/ML VIAL IV STA (22:38)
[2025-08-05] MEDS: normal saline 1000ml 1,000 ML IV ONE (22:40)
[2025-08-05] MEDS: ondansetron/PF 4mg/2ml inj IV STA (22:44)
--- NOTE | 2025-08-05 23:54 | Physician Documentation ---
History of Present Illness ~ Chief Complaint: Flank Pain Stated Complaint: KIDNEY STONES Time Seen by MD: 23:10 Primary Medical Doctor: Bean (but no [facility] care) HPI Patient presents to the emergency room with right-sided flank pain. Patient has history of multiple stones and states this feels similar. She was seen here one-week ago for kidney stones where CT scan was performed confirming diagnosis. She states that she passed that one and that this is a new one. She denies any dysuria. Significant nausea to the point where she has been able to tolerate any of her pain medications. Medication Reconciliation Allergies: Coded Allergies: No Known Allergies (Unverified , 08/05/25) Scheduled Lansoprazole (Lansoprazole), 1 CAP PO DAILY Tamsulosin Hcl* (Flomax*), 0.4 MG PO DAILY Scheduled PRN Hydrocodone Bit/Acetaminophen 5/325 MG (Carnation 5/325 MG), 1-2 TAB PO Q4-6 hours PRN for pain Past Medical History Past Medical History: Kidney Stones, Chronic Back Pain Past Surgical History: hysterectomy Other Past Surgical History: foot surgery for neuroma Patient History: FH: breast cancer FAMILY/OTHER (Aunt on mothers side), FH: prostate cancer FATHER Other Past Family History: No family history of CAD Alcohol Use: None Drug Use: none Lives with: Family Lives In: Home Occupation: retired Review of Systems ROS All review of systems negative except as per HPI Physical Exam Vital Signs: Temperature: 98.2, Source: Temporal, Heart Rate: 97, Respiratory Rate: 20, BP: 132/74, Pulse Oximetry: 97, Weight: 88.640 Physical Exam General: Patient is awake, alert, oriented x4, mild distress. Appears uncomfortable Head: Normocephalic and atraumatic. Eyes: Conjunctival normal. EOMI. PERRL. ENT: Mucous membranes moist. Neck: Supple, trachea is midline. Chest: Clear to auscultation bilaterally without rales, rhonchi, or wheezes. There is no accessory muscle use or retractions. Cardiac: RRR without murmurs, gallops, or rubs. Abd: Soft, nondistended, no tenderness to palpation. Positive bowel sounds Extremities: Normal strength. Normal range of motion. No deformities or edema. Back: Right-sided CVA tenderness Progress Results/Orders Results/Orders Orders - NAVJOT SCHROEDER MD Tamsulosin Capsule (Flomax Capsule) (08/06/25 02:00) Completed Orders - NAVJOT SCHROEDER MD Normal Saline 1000ml (0.9% Sodium Chlori (08/06/25 00:50) Medications Received in ER Medications (Trade) Dose Ordered Sig/Sam Route PRN Reason Start Time Stop Time Status Last Admin Dose Admin Sodium Chloride 1,000 ml @ 1,000 mls/hr ONCE ONCE IV 08/05/25 22:40 08/05/25 23:39 DC 08/05/25 22:40 1,000 MLS/HR (Toradol inj. 30mg/ml) 30 mg ONCE STAT IV 08/05/25 22:38 08/05/25 23:02 DC 08/05/25 22:38 30 MG (morphine inj.) 4 mg ONCE STAT IV 08/05/25 22:38 08/05/25 23:02 DC 08/05/25 22:38 4 MG (Zofran 4mg/2ml vial) 4 mg ONCE STAT IV 08/05/25 22:44 08/05/25 23:02 DC 08/05/25 22:44 4 MG Sodium Chloride 1,000 ml @ 1,000 mls/hr ONCE ONCE IV 08/06/25 00:50 08/06/25 01:49 DC 08/06/25 01:18 1,000 MLS/HR (Flomax capsule) 0.4 mg HS PO 08/06/25 02:00 08/06/25 02:12 0.4 MG Vital Signs 08/05/25 08/05/25 08/05/25 08/05/25 17:59 19:11 22:38 22:38 Temp 97.8 98.2 Pulse 88 97 Resp 18 20 16 16 B/P (MAP) 140/83 132/74 (93) Pulse Ox 97 97 08/06/25 08/06/25 08/06/25 00:35 00:54 02:21 Temp 98.2 Pulse 99 89 Resp 20 16 18 B/P (MAP) 130/72 (91) 134/74 (94) Pulse Ox 98 98 Laboratory Tests Test 08/05/25 18:16 08/05/25 23:11 08/06/25 02:25 White Blood Count 12.3 H Red Blood Count 5.42 Hemoglobin 15.1 Hematocrit 45.9 H Mean Corpuscular Volume 84.6 Mean Corpuscular Hemoglobin 27.8 Mean Corpuscular Hemoglobin Concent 32.8 L Red Cell Distribution Width 13.3 Platelet Count 391 Mean Platelet Volume 8.3 Neutrophils (%) (Auto) 79.7 H Lymphocytes (%) (Auto) 11.3 L Monocytes (%) (Auto) 8.1 Eosinophils (%) (Auto) 0.5 Basophils (%) (Auto) 0.4 Neutrophils # (Auto) 9.8 H Lymphocytes # (Auto) 1.4 Monocytes # (Auto) 1.0 H Eosinophils # (Auto) 0.1 Basophils # (Auto) 0.0 CBC Comment Sodium Level 136 Potassium Level 4.0 Chloride Level 98 L Carbon Dioxide Level 27.0 Anion Gap 11 Blood Urea Nitrogen 17 Creatinine 1.11 H Estimated GFR/1.73 m2 48 BUN/Creatinine Ratio 15.3 Glucose Level 115 H Calcium Level 8.9 Total Bilirubin 0.7 Aspartate Amino Transf (AST/SGOT) 15 Alanine Aminotransferase (ALT/SGPT) 14 Alkaline Phosphatase 98 Total Protein 7.9 Albumin 3.3 L Globulin 4.6 H Albumin/Globulin Ratio 0.7 L Procalcitonin < 0.05 Chemistry Comments Lactic Acid Level 0.8 Urine Specimen Description Cln catch midstream Urine Color Yellow Urine Clarity Slightly cloudy Urine pH 5.5 Urine Specific [place] 1.025 Urine Protein 100 H Urine Glucose (UA) Negative Urine Ketones 15 H Urine Occult Blood Moderate H Urine Nitrite Negative Urine Bilirubin Small Urine Urobilinogen 0.2 Urine Leukocyte Esterase Trace H Urine RBC 3-10 Urine WBC 5-10 H Urine Squamous Epithelial Cells Moderate Urine Bacteria 2+ Urine Mucus Moderate Urine Culture Indicated Indicated Volume Urine Centrifuged 10 ml Urine Comment Medical Decision Making Findings Upon re-evaluation patient is feeling much better. Patient presented to the emergency room flank pain as per HPI. Differentials include but are not limited to kidney stone, aortic pathology, pyelonephritis, musculoskeletal pain therefore emergent labs ordered. Labs reassuring for negative procalcitonin although patient has a slight elevation of white blood cell count which which I attribute to stress response. Patient's urine that has not the cleanest of catch and we are able to compare this to urinalysis performed in April which was very similar which did not grow out anything. I do not feel she is suffering from urinary tract infection. Given patient's history symptoms consistent with kidney stone and we will treat her as such. ER precautions regarding fever worsening of symptoms discussed. After utilizing shared decision-making we are declining CT scan at this time given patient's multiple CT scans being positive for similar symptoms of kidney stone. Departure Disposition: HOME / SELF CARE / HOMELESS Impression: Primary Impression: Calculus of kidney Condition: Improved Discharge Instructions: Kidney Stones Additional Instructions: Return for worsening of symptoms or fevers. Referrals: NO PRIMARY CARE PROVIDER (PCP) Prescriptions Ondansetron 8mg ODT (Ondansetron Odt) 8 Mg Tab.rapdis 1 TAB PO Q6H for nausea/vomiting for 3 Days, #12 TAB 0 Refills Prov: NAVJOT SCHROEDER MD 08/06/25 Oxycodone HCl/Acetaminophen (Percocet 5-325 mg Tablet) 5 Mg-325 Mg Tablet 1-2 TAB PO Q4HPRN PRN for pain, #12 TAB 0 Refills Prov: NAVJOT SCHROEDER MD 08/06/25 Education Educated: Patient Educated regarding: diagnosis, treatment, need for follow up Signature Scribe Signature: No scribe Attestation: The note accurately reflects work and decisions made by me.Navjot Schroeder MD 08/06/25 03:11 NAVJOT SCHROEDER MD Aug 05, 2025 23:54
[2025-08-06] MEDS: normal saline 1000ml 1,000 ML IV ONE (01:18)
[2025-08-06 02:51] LABS: LEUKOCYTE ESTERASE ,URINE TRACE (Neg); NITRITES, URINE NEGATIVE (Neg); OCCULT BLOOD,URINE MODERATE (Neg)
[2025-08-06 02:56] LABS: UA COLLECTION TYPE CLN CATCH MIDSTREAM
[2025-08-06 03:01] LABS: MUCUS STRANDS MODERATE /LPF (Neg); SQUAMOUS EPITHELIAL CELL,UR MODERATE /LPF (FEW)
[2025-08-06] MEDS ORDERED: OXYC-145 PO (03:10)
[2025-08-06] MEDS ORDERED: ONDA-245 PO (03:10)
[2025-08-06 03:20] VITALS: BP 132/70; PULSE 86; RESP 18; TEMP 98.6; O2SAT 99
== END 2025-08-06 03:22 | disposition home or self-care (01) ==
LOC: ER 17:46
DX: N20.0 Calculus of kidney (principal); Z86.018 Personal history of other benign neoplasm; Z90.710 Acquired absence of both cervix and uterus
CPT/HCPCS: 36415; 80053; 81001; 83605; 84145; 85025; 87088; 96361; 96374; 96375; 99285; J1885; J2270; J2405; J7030